=== PATIENT | male | born 1950 | race Two or more races ===

== ENCOUNTER 2023-04-30 05:55 | Day surgery (SDC) | payer OTHER ==
[2023-04-30] MEDS ORDERED: TRAM1TAB98 PO (12:14)
[2023-04-30] MEDS ORDERED: NEURONTIN300 MG PO (12:14)
[2023-04-30] MEDS ORDERED: COLACE100 MG PO (12:14)
== END 2023-04-30 17:40 | disposition home or self-care (01) ==
LOC: CIR.AMB 05:55
PROVIDERS: ATTEND Surgery
DX: K64.4 Residual hemorrhoidal skin tags (principal); K64.1 Second degree hemorrhoids; Z20.822 Contact with and (suspected) exposure to COVID-19; E03.9 Hypothyroidism, unspecified